=== PATIENT | female | born 1990 | race Two or more races ===

== ENCOUNTER 2016-10-05 09:33 | Emergency (ER) | payer OTHER ==
[~2016-10-05] VITALS: Ht 157.5 cm; Wt 68.0 kg
[2016-10-05 09:37] VITALS: BP 117/81
== END 2016-10-05 10:06 | disposition home or self-care (01) ==
LOC: ER 09:35
DX: J02.8 Acute pharyngitis due to other specified organisms (principal)
CPT/HCPCS: 99281; A4606; Z7610; Z7502